=== PATIENT | female | born 1990 | race Caucasian/White ===

== ENCOUNTER 2024-08-19 09:47 | Outpatient (AMB) | payer MEDICAID, SELFPAY ==
--- NOTE | 2024-08-19 09:48 | A.OFFVIS_ITS ---
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 The pain is described as aching and burning, with an intensity of 6 to 7 out of 10. Diagnosed conditions include degenerative disc disease and sp ondyloarthritis. Previous X-rays confirmed these conditions, though no MRI has been performed. The patient has tried physical therapy, which exacerbated her pain. She was on gabapentin without benefit and currently uses meloxicam with limited relief. The patient has additional psychiatric conditions including depression, PTSD, and bipolar disorder, which she manages with counseling and Abilify. A history of childhood seizures was noted, which resolved after discontinuing Depakote, with the last seizure reported around 2019. The patient actively avoids invasive procedures such as epidural injections due to fear, but remains open to exploring other pain management treatments. She seeks an MRI to further evaluate the progression of her back conditions. Pain Description - Onset: 2002, following trauma from a horse stepping incident - Quality: Aching and burning sensation - Intensity: 6-7/10 initially, decreases to 3/10 by afternoon - Location: Axial low back - Exacerbating Factors: Morning time, bending, stretching, and physical therapy - Relieving Factors: Gradual decrease in pain over the course of the day - Interference: Hinders bending, routine sleep, and daily activities Physical Exam - Appears afebrile. - Alert and oriented. - Mood and affect appropriate. - Follows and participates in conversation appropriately. - Respiratory effort is unlabored. - Able to transition from sit to stand unassisted. - Ambulates with bilaterally normal heel strike and toe off. - Able to stand and walk on toes and heels. Results - Imaging: Prior X-ray showed degenerative changes and was less informative; no MRI conducted yet Pain Management - Affect: Pain significantly impacts mood and psychological wellbeing, leading to counseling - Analgesia: Current use of meloxicam with limited benefit; previously used gabapentin - Adverse Effects: Noted pain exacerbation with physical therapy - Activities of Daily Living: Pain affects bending, sleep, and daily chores - Aberrant Drug-Related Behaviors: Denied ON LICENSE OF [facility] Medical History (Updated 08/19/24 @ 10:14 by Brad Diallo MD) Seizure Bipolar disorder PTSD (post-traumatic stress disorder) Physical Exam Vital Signs: Last Vital Signs Pulse 88 08/19/24 09:50 Resp 16 08/19/24 09:50 BP 102/70 08/19/24 09:50 Pulse Ox 96 08/19/24 09:50 Oxygen Delivery Method Room Air 08/19/24 09:50 BMI result Body Mass Index 28.7 Assessment & Plan Assessment & Plan (1) Lumbar radiculopathy: Code(s): M54.16 - Radiculopathy, lumbar region Category: Medical Plan Plan MRI exam is the next step given the current state of the patient's lumbar condition. Depending on the MRI findings, non-invasive treatment options will be considered, respecting the patient's preferences to avoid epidural injections. Continuing psychiatric management to manage her depression and bipolar disorder will be carlos. Further psychiatric engagements will help address the psychological burden of her chronic pain condition, and vigilance for any reappearance of seizures will be maintained. Patient was informed and verbally consented to the use of an ambient scribe for clinic note documentation during this visit. Discussion Notes During the visit, I discussed the patient?s chronic low back pain, highlighting the importance of obtaining an MRI for better diagnostic clarity. We reviewed options for pain management, respecting her preference to avoid epidural injections. I discussed conservative management options and non-invasive procedures. I also addressed her psychiatric conditions, emphasizing their impact on pain and the beneficial role of continued counseling and appropriate medication management. We reviewed seizure history and agreed to monitor for any signs of recurrence. The patient was informed about the necessity of updated imaging for advancement in pain assessment and management strategy. Patient Instructions - Await a phone call from radiology to schedule an MRI. - Continue taking current medications as prescribed; consult me if any side effects occur. - Attend [facility] for regular psychiatric support. - Monitor health status and report new symptoms immediately. - Avoid activities that exacerbate pain and follow provided guidelines for movement and rest. Orders: Orders MR lumbar spine wo con 08/19/24 M54.16 - Radiculopathy, lumbar region Coding Level of Care Code New Pt Level 4 (54879) Diagnoses Lumbar radiculopathy M54.16
[2024-08-19 09:50] VITALS: BP 102/70; PULSE 88; RESP 16; O2SAT 96; BMI 28.7
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
--- OUTSIDE RECORDS SUMMARY | 2024-08-19 10:41 | XMS_ITS | Clinical Summary ---
Author Organization [facility] Address [address] [place] [address] Care Team Providers Care Telephone Ad Taker Name Role Phone Devan Hortencia Carmela Primary Care Provider [phone] Allergies Active Allergy Reactions Criticality Noted Date Comments Eggs 05/18/2021 Medications Escitalopram Oxalate (LEXAPRO) 20 MG tablet Take 20 mg by mouth 01/05/2021 Active Gabapentin (NEURONTIN) 300 MG capsule Take 300 mg by mouth 03/23/2021 Active hydrOXYzine HCl (ATARAX) 25 MG tablet 07/20/2020 Active Active Problems No known active problems Immunizations Name Administration Dates Next Due COVID-19, mRNA (Pfizer Pre F all 2022) Monovalent, 30 mcg/0.3 ml 03/15/2021 Covid-19, mRNA (Pfizer Pre F all 2022) Monovalent, 30 mcg/0.3 ml jeannette-sucrose (12+) 10/05/2021 Hep B (adult) 03/06/2020 Influenza,injectable,quad,preservative 0 Influenza,recombinant,quad,injectable,Prsrv Fr 1 Tdap 03/13/2020 Social History Tobacco Use Types Packs/Day Years Used Date Smoking Tobacco: Never Assessed Intimate Partner Violence Answer Date R ecorded Fear of Current or Ex-Partner Not on file Emotionally Abused Not on file 02/02/2023 Physically Abused Not on file 02/02/2023 Sexually Abused Not on file 02/02/2023 Feel Safe at Home Not on file 02/02/2023 Comments Unknown Sex and Gender Information Value Date Recorded Sex Assigned at Not on file Legal Sex Female 9:23 AM EST Gender Identity Not on file Sexual Orientation Not on file Last Filed Vital Signs Vital Sign Reading Time Taken Comments Blood Pressure 94/68 11/30/2022 2:16 PM EDT Pulse 68 11/30/2022 1:47 PM EDT Temperature - - Respiratory Rate - - Oxygen Saturation - - Inhaled Oxygen Concentration - - Weight 69.4 kg (153 lb) 11/30/2022 1:47 PM EDT Height 161.3 cm (5' 3.5 ) 11/30/2022 1:47 PM EDT Body Mass Index 26.68 11/30/2022 1:47 PM EDT Plan of Treatment Health Maintenance Due Date Last Done Comments Hepatitis C Screening 1989 Pap Smear 2005 Hep B (2 of 3 - 19+ 3-dose series) 04/03/2020 03/06/2020 COVID-19 Vaccine ( - 2023-2 5 season) 2024 10/05/2021, 03/15/2021 Influenza (#1) 2024 03/15/2021, 03/06/2020 DTaP/Tdap/Td (2 - Td or Tdap) 03/13/2030 03/13/2020 Zoster (Shingrix) (1 of 2) 10/25/2039 HPV Vaccine Aged Out No longer eligi ble based on patient's age to complete this topic Hep A Aged Out No longer eligi ble based on patient's age to complete this topic Hib Aged Out No longer eligi ble based on patient's age to complete this topic Meningococcal ACWY Aged Out No longer eligible based on patient's age to complete this topic Pneumococcal Aged Out No longer eligi ble based on patient's age to complete this topic Insurance , [address] [place] [address] MEDICAID * Guarantor: CAROLYN PLATA Account Type Relation to Patient Date of Phone Billing Address [employer] [address] [place] [address] Care Teams Telephone Ad Taker Relationship Specialty Start Date End Date Hortencia Hartman [facility] [address] [place], [place] [address] [place] [address] PCP - General Family Medicine 05/10/21
--- OUTSIDE RECORDS SUMMARY | 2024-08-19 10:41 | XMS_ITS | Encounter Summary ---
Author Organization [facility] Address [address] [place] [address] Care Team Providers Care Wafer Batter Mixer Name Role Phone Devan Hortencia Carmela Primary Care Provider [phone] Encounter Details Date Type Department Care Team (Late st Contact Info) Description 05/17/2021 Orders Only [facility] Orthopedic Surgery [address] [facility] [address] [place] [address] Crystal Dorsey MD [address] [place] [address] Social History Tobacco Use Types Packs/Day Years Used Date Smoking Tobacco: Never Assessed Comments Unknown Sex and Gender Information Value Date Recorded Sex Assigned at Not on file Legal Sex Female 9:23 AM EST Gender Identity Not on file Sexual Orientation Not on file documented as of this encounter Plan of Treatment Not on file documented as of this encounter Results * Due to [place] state law, this organization might not be sharing negative HIV tests. * XRAY FOOT COMPLETE MIN 3 VWS - LEFT FC (05/18/2021 9:35 AM EST) Anatomical Region Laterality Modality LOWER EXTREMITY Radiographic Larissa ging 05/18/2021 5:48 PM EST Narrative 05/18/2021 5:48 PM EST CONTRAST: 3 views left foot Comparison: None Findings: No fractures or dislocations. No joint effusion. No significant arthritic change. No radiopaque foreign body. Impression: 1. Normal left foot Procedure Note Chritsopher Coats MD - 05/18/2021 CONTRAST: 3 views left foot Comparison: None Findings: No fractures or dislocations. No joint effusion. No significant arthritic change. No radiopaque foreign body. Impression: 1. Normal left foot us Crystal Dorsey MD IMG XRAY NO CONTRAST ORDERAB LES Final Result documented in this encounter Visit Diagnoses Diagnosis Left foot pain- Primary Pain in limb Left foot pain Pain in limb documented in this encounter Care Teams Wafer Batter Mixer Relationship Specialty Start Date End Date Hortencia Hartman [facility] [address] [place], [place] [address] [address] PCP - General Family Medicine 05/10/21 documented as of this encounter
--- OUTSIDE RECORDS SUMMARY | 2024-08-19 10:42 | XMS_ITS | Data Portability ---
Author Organization [facility], [facility] Address [address] [place] [address] Care Team Providers Care Regional Sales Associate Name Role Phone CLYDE WOOD Primary Care Provider Assessment No assessment recorded. Plan of Treatment Reminders Order Date Submit Date Provider Last Modified By Organization Details Last Modified Time Details Appointments None recorded. Lab tb (M tuberculo sis), ifn-gamma mehnaz, blood [address] Patient Reg, [address] [place] [address], [id number], 0 08:09:31 varicella -zoster igg Ab screen, serum [address] Patient Reg, [address] [place] [address], [address], 0 08:09:31 MMR immunity, serum [address] Patient Reg, [address] [place] [address], [address], 0 08:09:31 drug of abuse panel, urine - chain of custody - 10 drug screen 020 [facility] Patient Reg, [address] [place], [address], 0 11:59:09 Referral None recorded. Procedures None recorded. Surgeries None recorded. Imaging None recorded. Medication Orders None recorded. Patient TargetsNo targets recorded. Patient Instructions Encounter Date Encounter Id Patient Instructions Last Modified By Organization Details Last Modified Time 03/06/2020 [id number] ishihara's test for color deficiency* [email or web address] Not available 03/06/2020 09:27:07 respiratory fit test* Not available 03/06/2020 09:29:42 04/10/2020 [id number] neck: exercises Not availa ble 04/10/2020 11:28:34 neck strain or sprain: rehab exercises Not available 04/10/2020 11:28:34 neck spasm: exercises Not available 04/10/2020 11:28:34 Reason for Referral None Reported. Results Created Date Observation Date Name Description Value Unit Range Abnormal Flag Note LastModifiedBy Organization Detail LastModifiedTime 03/06/2003/06/2020 ishih abdulaziz's test for color defic iency * Score: Pass Not Available [facility] [address] [facility] [address], [place], [address], 03/06/2020 08:53:54 03/06/2003/06/2020 ishih abdulaziz's test for color defic iency * Notes: 5/6 Not Available [facility] [address] [facility] [address], [place], [address], 03/06/2020 08:53:54 03/06/20 20 03/06/2020 respi rator y fit test* Result Pass Not Available [facility] [address] [facility] [address], [place], [address], 03/06/2020 09:29:27 03/06/20 20 03/06/2020 respi rator y fit test* Size Small Not Available [facility] [address] [facility] [address], [place], [address], 03/06/2020 09:29:27 04/14/20 20 04/15/2020 SARS CoV 2 RNA (COVI D-19) , QL, 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 normal The Aptim a SARS- CoV-2 assay is a nucle ic acid ampli ficat ion in vitro diagn ostic test inten ded for the quali tativ e detec tion of RNA from SARS- CoV-2 isola jocelyne and purif ied from nasop haryn geal (DECAL CUTTER), nasal , mid-t urbin ate, and oroph aryng eal (OP) swab speci mens obtai collin from indiv idual s meeti ng COVID -19 clini beth and/o r epide miolo gical crite armando. Resul ts are for the ident ifica tion of SARS- CoV-2 RNA which is gener ally detec table in upper respi rator y speci mens durin g the acute phase of infec tion. Posit jaed resul ts are indic ative of the prese nce of SARS- CoV-2 RNA, clini beth corre latio n with patie nt histo ry and other diagn ostic infor matio n is neces yashira to deter mine patie nt infec tion statu s. Posit jade resul ts do not rule out bacte rial infec tion or co-in fecti on with other virus es. Negat jade resul ts do not precl ude SARS- CoV-2 infec tion and shoul d not be used as the sole basis for patie nt manag ement decis ions. Negat jade resul ts must be combi collin with clini beth obser vatio ns, patie nt histo ry and epide miolo gical infor matio n. The Aptim a SARS- CoV-2 assay is for use only under the Food and Drug Admin istra tion' s Emerg ency Use Autho rizat ion (EUA) . Not Available [facility] [address] [place], [address], 04/15/2020 02:02:23 03/06/20 20 ishih abdulaziz's test for color defic iency * No observ ation record ed. [address] Occupational Medicine [address] [facility] [address], [place], [address], 03/06/2020 14:02:08 Result Notes None recorded. Procedures Surgical History None recorded. Imaging Results Imaging Date Name Status LastModified by Organiz ation Details LastModified Time 03/06/2020 ishreshma's test for color deficiency* completed [address] Occupational Medicine [address] [place] [address], [place], [address], 03/06/2020 14:02:08 Procedure Notes None recorded. Medical Equipment None [...] Not Available Not Available No t Available cephalexin 500 mg capsule TAKE 1 CAPSULE [...] Not Available Not Available No t Available Vitals Date Recorded Heart rate Oxygen saturation Oxygen saturation in Arterial blood by Pulse oximetry Body height Body mass index (BMI) Body weight Systolic blood pressure Diastolic blood pressure Provider Name and Address Organization Details Last Updated DateTime 0 81 /min 99 % 99 % 160.02 cm 25.7 kg/m2 67885.8 9 g 114 mm[Hg] 78 mm[Hg] Ashley Still MA [facility] 0 09:10:00 Date Recorded Body height Provider Name an d Address Organization Details Last Updated DateTime 04/10/2020 160.02 cm Ashley Still [facility] 04/10/2020 10:22:06 Social History None recorded. Functional Status None recorded. Mental Status None recorded. Family History Nothing Reported. Medical History No medical history recorded. Gynecological HistoryNo gynecological history recorded. Obstetrics History GPAL:G 0 P 0 0 0 0 Immunizations Vaccine Type Date Status Note Provider Nam e and Address Organization Details Recorded Time Influenza, split virus, quadrivalent, preservative 0 completed KALEY Lovett [facility] 03/06/2020 09:50:45 Hep B, adult 0 completed KALEY Lovett [facility] 03/06/2020 09:51:37 [facility]13[facility] 15:52:33 Past Encounters Encounter ID Performer Location Encounter Start Date Encounter Closed Date Diagnosis/Indication Diagnosis SNOMED-CT Code Diagnosis ICD10 Code Diagnosis Note [id number] Herve Glez MD [facility] for [address] [address] 03/23/2012 10:20:03 03/23/2012 11:15:02 [id number] Meagan Wheeler NP [facility] for [address] [address] 03/26/2012 11:03:45 03/27/2012 09:44:20 [id number] Meagan Wheeler NP [facility] for [address] [address] 06/15/2012 11:02:56 06/15/2012 14:18:07 [id number] WALLY MARTÍNEZ NP Occupatio [address] [address] 03/06/2020 08:51:57 03/06/2020 09:49:52 History and physical examination, pre-employment 513093576 Z02.1 On exam NAD, no LAD, lungs clear, RRR, no M/R/G, abd benign, neuro intact, color vision normal. Urine drug screen obtained today. Test orders provided for lab. Discussed back safety and safe lifting techniques . Paperwork provided to pt. See scanned papers. Fitting procedure [id number] 006 Z46.9 pass; small halyard [id number] [facility] [address] 03/13/2020 15:39:13 03/13/2020 15:52:50 Administration of diphtheria, pertussis, and tetanus vaccine 666765336 Z23 tdap given in office today [id number] Lazaro Malcolm III, MD [facility] [address] [place] [address] 04/08/2020 13:23:41 04/08/2020 15:36:58 [id number] SONIA Sanchez [address] [address] 04/10/2020 10:21:37 04/13/2020 11:58:24 Strain of neck muscle 024181197 S16.1XXA General c-spine paraspinal muscle spasm and pain. RICE, alternate with heat, cont. with muscle relaxants, and gentle ROM exercises. F/u with PCP for further eval Unfit to r eturn to work [id number] Z56.89 Unfit to return to work at this time. Will f/u 04/13 for re-eval. Returned Goods Receiving Clerk informed. [id number] SONIA Sanchez Occupatio [facility] [address] [facility],[address] [place] [address] 04/16/2020 14:55:26 04/16/2020 15:19:08 Fit to return to work [id number] Z76.89 Normal exam of neck in the office today. Discussed proper lifting and bending techniques . Education provided to follow up if symptoms come back. Her PCP Dr. Wood cleared her without restrictio ns to return to work. She will provide a note if needed for her record. Returned Goods Receiving Clerk has been advised. Health Concerns Section Related Observation LastModified by Organization Detai ls LastModified Time None Recorded Concern Status LastModified by Organization Details LastModified Time None Recorded Advance Directives Directive None Recorded Payers Encounter Date Sequence Insurance Name Policy Number Policy Rodriguez Covered Member ID Rodriguez Member ID Guarantor Name 03/06/2020 [facility] Negrita [employer] [facility] [employer]ita [employer] 03/13/2020 [facility] Negrita [employer] [facility] [employer]ita [employer] 04/10/2020 [facility] Ne[employer] [facility] [employer]ita [employer] 04/16/2020 [facility] Negrita M Dar Notes Date Note Type Note Provider Name and Address Organization Details Recorded Time 03/06/2020 text/html 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 She believes, based upon the job description that was provided to her that she can handle all duties and responsibilities of the job. She denies any history of work related injuries. WALLY MARTÍNEZ NP [address] [facility], [place], [address], [facility] 03/06/2020 09:33:00 03/13/2020 text/html Patient presents to office for tdap vaccination. She will be working for . SONIA Sanchez [address] [facility] [place], [address], [facility] 03/16/2020 11:26:57 04/10/2020 text/html Pt is here for R TW for s/p home neck injury. Was seen at on 04/08/20 without any relief of symptoms. Given muscle relaxant, told to take NSAIDs, and given neck brace. States very little ROM of the neck with pain. Can not pickup her daughter or bend without limitations. States she woke up like this. Has had similar neck and back issues before in which she saw PT SONIA Sanchez [address] [place], [address], [facility] 04/10/2020 16:20:14 04/16/2020 text/html Employee seen to day in the office for a follow up/RTW for a neck injury. HH at [facility]. She has been cleared by her PCP to RTW without restrictions. SONIA Sanchez [address] [place], [address], [facility] 05/12/2020 16:26:48 OBGyn Episode No OBEpisode recorded.
== END 2024-08-19 10:21 | disposition home or self-care (01) ==
PROVIDERS: Visit Provider Internal Medicine
DX: M54.16 Radiculopathy, lumbar region (principal)
CPT/HCPCS: 99204

== ENCOUNTER → 2024-08-19 09:47 | Outpatient (BNVA) | payer MEDICAID, SELFPAY | PROVIDERS: Visit Provider Internal Medicine | DX: M54.16 Radiculopathy, lumbar region (principal) | CPT/HCPCS: 99202 ==

== ENCOUNTER → 2024-08-28 11:25 | Outpatient (BNV) | payer MEDICAID, SELFPAY | PROVIDERS: Visit Provider Radiology Diagnostic Radiology | DX: M54.16 Radiculopathy, lumbar region (principal); M47.896 Other spondylosis, lumbar region | CPT/HCPCS: 72148 ==

== ENCOUNTER 2024-08-28 11:28 | Outpatient (REF) | payer MEDICAID, SELFPAY ==
--- NOTE | ~2024-08-28 | MR_ITS ---
EXAMINATION: MR LUMBAR SPINE WITHOUT CONTRAST CLINICAL INFORMATION: Radiculopathy, lumbar region. COMPARISON: None available. TECHNIQUE: MRI of the lumbar spine was obtained using routine sequences without contrast. FINDINGS: Last rib-bearing vertebra labeled T12. No bone marrow STIR signal abnormality. There is normal alignment. The conus medullaris ends at inferior endplate of T12 with normal signal. T11-12: No disc herniation. No neuroforamina stenosis. T12-L1: No disc herniation. No neuroforamina stenosis. L1-2: Broad-based disc bulging. Facet joint hypertrophy. No disc herniation. No neuroforamina stenosis. L2-3: Broad-based disc bulging. Facet joint and ligamentum flavum hypertrophy. Reduced AP diameter of the thecal sac and the neural foramina. No compression upon neural elements. L3-4: Broad-based disc bulging. Facet joint and ligamentum flavum Review. Reduced AP diameter of the thecal sac and neuroforamina. L4-5: Broad-based disc bulging. Facet joint and ligamentum flavum hypertrophy. Reduced AP diameter of the thecal sac and the neural foramina. No compression. L5-S1: Broad-based disc bulging. Facet joint hypertrophy. Bilateral neuroforamina narrowing. No prevertebral compartment hematoma, mass or fluid collection. Small amount of free fluid in the cul-de-sac. Heterogeneous appearance of the myometrium. Multiple cystic structures in the right adnexa. MR/MR lumbar spine wo con IMPRESSION: Multilevel lumbar spondylosis, mild to moderate L3-4 to L5-S1. Electronically signed by: Ray Dowling MD 08/28/2024 03:39 PM EDT
--- OUTSIDE RECORDS SUMMARY | 2024-08-28 14:05 | XMS_ITS | Encounter Summary ---
Author Organization [facility] Address [address] [place] [address] Care Team Providers Care Ship Ceiler Name Role Phone Devan Hortencia Carmela Primary Care Provider [phone] Encounter Details Date Type Department Care Team (Late st Contact Info) Description 05/17/2021 Orders Only [facility] Orthopedic Surgery [address] [facility] [address] [place] [address] Crystal Dorsey MD [address] [place] [address] Social History Tobacco Use Types Packs/Day Years [...] of this encounter Results * Due to [place] state law, this organization might not be [...] Impression: 1. Normal left foot Procedure Note Christopher Coats MD - 05/18/2021 CONTRAST: 3 views [...] limb documented in this encounter Care Teams Ship Ceiler Relationship Specialty Start Date End Date Hortencia Hartman [facility] [address] [place], [place] [address] [address] PCP - General Family Medicine 05/10/21 documented as of this encounter
--- OUTSIDE RECORDS SUMMARY | 2024-08-28 14:05 | XMS_ITS | Clinical Summary ---
Author Organization [facility] Address [address] [place] [address] Care Team Providers Care Event Staff Name Role Phone Devan Hortencia Carmela Primary Care Provider [phone] Allergies Active Allergy Reactions Criticality Noted Date [...] complete this topic Insurance , # [address] [place] [address] MEDICAID * Guarantor: CAROLYN PLATA Account Type Relation to Patient Date of Phone Billing Address Occupational [employer] [address] [place] [address] Care Teams Event Staff Relationship Specialty Start Date End Date Hortencia Hartman [facility] [address] [place], [place] [address] [address] PCP - General Family Medicine 05/10/21
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
--- OUTSIDE RECORDS SUMMARY | 2024-08-28 14:05 | XMS_ITS | Data Portability ---
Author Organization [facility] Address [address] [place] [address] Care Team Providers Care Yarn Conditioner Name Role Phone CLYDE WOOD Primary Care Provider [phone] Assessment No assessment recorded. Plan of Treatment Reminders Order Date Submit Date Provider Last Modified By Organization Details Last Modified Time Details Appointments None recorded. Lab tb (M tuberculo sis), ifn-gamma mehnaz, blood [address] Patient Reg, [address] [place] [address], [address], 0 08:09:31 varicella -zoster igg Ab screen, serum [address] Patient Reg, [address] [place] [address], [address], 0 08:09:31 MMR immunity, serum [address] Patient Reg, [address] [place] [address], [address], 0 08:09:31 drug of abuse panel, urine - chain of custody - 10 drug screen 020 [facility] Patient Reg, [address] [place], [address], 0 11:59:09 Referral None recorded. Procedures None recorded. Surgeries None recorded. Imaging None recorded. Medication Orders None recorded. Patient TargetsNo targets recorded. Patient Instructions Encounter Date Encounter Id Patient Instructions Last Modified By Organization Details Last Modified Time 03/06/2020 [id number] ishihara's test for color deficiency* [email or web address] Not available 03/06/2020 09:27:07 respiratory fit test* [email or web address] Not available 03/06/2020 09:29:42 04/10/2020 [id number] neck: exercises Not availa ble 04/10/2020 11:28:34 neck strain or sprain: rehab exercises Not available 04/10/2020 11:28:34 neck spasm: exercises Not available 04/10/2020 11:28:34 Reason for Referral None Reported. Results Created Date Observation Date Name Description Value Unit Range Abnormal Flag Note LastModifiedBy Organization Detail LastModifiedTime 03/06/2003/06/2020 ishih abdulaziz's test for color defic iency * Score: Pass Not Available [facility] [address] [facility] [address], [place], [address], 03/06/2020 08:53:54 03/06/2003/06/2020 ishih abdulaziz's test for color defic iency * Notes: 5/6 Not Available [facility] [address] [facility] [address], [place], [address], 03/06/2020 08:53:54 03/06/20 20 03/06/2020 respi rator y fit test* Result Pass Not Available [facility] [address] [facility] [address], [place], [address], 03/06/2020 09:29:27 03/06/20 20 03/06/2020 respi rator y fit test* Size Small Not Available [facility] [address] [facility] [address], [place], [address], 03/06/2020 09:29:27 04/14/20 20 04/15/2020 SARS CoV 2 RNA (COVI D-19) , QL, electrical mechanical technician-P CR, respi rator y speci men sars-cov-2 NOT DETECT ED not detect . normal The Aptim a SARS- CoV-2 assay is a nucle ic acid ampli ficat ion in vitro diagn ostic test inten ded for the quali tativ e detec tion of RNA from SARS- CoV-2 isola jocelyne and purif ied from nasop haryn geal (SCALLOP CUTTER MACHINE), nasal , mid-t urbin ate, and oroph [...] the acute phase of infec tion. Posit jade resul ts are indic ative of the [...] Autho rizat ion (EUA) . Not Available [facility] [address] [place], [address], 04/15/2020 02:02:23 03/06/20 20 ishih abdulaziz's test for color defic iency * No observ ation record ed. [address] Occupational Medicine [address] [facility] [address], [place], [address], 03/06/2020 14:02:08 Result Notes None recorded. Procedures Surgical History None recorded. Imaging Results Imaging Date Name Status LastModified by Organiz ation Details LastModified Time 03/06/2020 ishreshma's test for color deficiency* completed [address] Occupational Medicine [address] [place] [address], [place], [address], 03/06/2020 14:02:08 Procedure Notes None recorded. Medical [...] % 99 % 160.02 cm 25.7 kg/m2 29985.8 9 g 114 mm[Hg] 78 mm[Hg] Ashley Still MA [facility] 0 09:10:00 Date Recorded Body height Provider Name an d Address Organization Details Last Updated DateTime 04/10/2020 160.02 cm [facility] Still [facility] 04/10/2020 10:22:06 Social History None recorded. Functional Status None recorded. Mental Status None recorded. Family History Nothing Reported. Medical History No medical history recorded. Gynecological HistoryNo gynecological history recorded. Obstetrics History GPAL:G 0 P 0 0 0 0 Immunizations Vaccine Type Date Status Note Provider Nam e and Address Organization Details Recorded Time Influenza, split virus, quadrivalent, preservative 0 completed KALEY Lovett [facility] 03/06/2020 09:50:45 Hep B, adult 0 completed KALEY Lovett [facility] 03/06/2020 09:51:37 [facility]/13[facility]2020 15:52:33 Past Encounters Encounter ID Performer Location Encounter Start Date Encounter Closed Date Diagnosis/Indication Diagnosis SNOMED-CT Code Diagnosis ICD10 Code Diagnosis Note [id number] Herve Glez MD [facility] [address] [address] 03/23/2012 10:20:03 03/23/2012 11:15:02 [id number] Meagan Wheeler NP [facility] [address] [address] 03/26/2012 11:03:45 03/27/2012 09:44:20 [id number] Meagan Wheeler NP [facility] [address] [address] 06/15/2012 11:02:56 06/15/2012 14:18:07 [id number] WALLY MARTÍNEZ NP Occupatio [address] [address] 03/06/2020 08:51:57 03/06/2020 09:49:52 History and physical examination, pre-employment 073094432 Z02.1 On exam NAD, no LAD, lungs clear, RRR, no M/R/G, abd benign, neuro intact, color vision normal. Urine drug screen obtained today. Test orders provided for lab. Discussed back safety and safe lifting techniques . Paperwork provided to pt. See scanned papers. Fitting procedure 474290 006 Z46.9 pass; small halyard [id number] [facility] [address] 03/13/2020 15:39:13 03/13/2020 15:52:50 Administration of diphtheria, pertussis, and tetanus vaccine 247716665 Z23 tdap given in office today [id number] Lazaro Malcolm III, MD [facility] [address] [place] [address] 04/08/2020 13:23:41 04/08/2020 15:36:58 [id number] SONIA Sanchez [address]ati[address] [address] 04/10/2020 10:21:37 04/13/2020 11:58:24 Strain of neck muscle 887136894 S16.1XXA General c-spine paraspinal muscle spasm and pain. RICE, alternate with heat, cont. with muscle relaxants, and gentle ROM exercises. F/u with PCP for further eval Unfit to r eturn to work 050094903 Z56.89 Unfit to return to work at this time. Will f/u 04/13 for re-eval. Landscape Gardener informed. [id number] SONIA Sanchez Occupatio [facility] [address] [facility],[address] [place] [address] 04/16/2020 14:55:26 04/16/2020 15:19:08 Fit to return to work 918568030 Z76.89 Normal exam of neck in the office today. Discussed proper lifting and bending techniques . Education provided to follow up if symptoms come back. Her PCP Dr. Wood cleared her without restrictio ns to return to work. She will provide a note if needed for her record. Landscape Gardener has been advised. Health Concerns Section Related Observation LastModified by Organization Detai ls LastModified Time None Recorded Concern Status LastModified by Organization Details LastModified Time None Recorded Advance Directives Directive None Recorded Payers Encounter Date Sequence Insurance Name Policy Number Policy Rodriguez Covered Member ID Rodriguez Member ID Guarantor Name 03/06/2020 [facility] Negrita [employer] [facility] Negrita [employer] 03/13/2020 [facility] Negrita [employer] [facility] Negrita [employer] 04/10/2020 [facility] Negrita [employer] [facility] Negrita Dodge 04/16/2020 [facility] Negrita M Dar Notes Date Note Type Note Provider Name and Address Organization Details Recorded Time 03/06/2020 text/html 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 She believes, based upon the job description that was provided to her that she can handle all duties and responsibilities of the job. She denies any history of work related injuries. WALLY MARTÍNEZ NP [address] [facility], [place], [address], [facility] 03/06/2020 09:33:00 03/13/2020 text/html Patient presents to office for tdap vaccination. She will be working for . SONIA Sanchez [address] [facility] [place], [address], [facility] 03/16/2020 11:26:57 04/10/2020 text/html Pt [...] which she saw PT SONIA Sanchez [address] [facility] [place], [address], [facility] 04/10/2020 16:20:14 04/16/2020 text/html Employee seen to day in the office for a follow up/RTW for a neck injury. HH at [facility]. She has been cleared by her PCP to RTW without restrictions. SONIA Sanchez [address] [facility] [place], [address], [facility] 05/12/2020 16:26:48 OBGyn Episode No OBEpisode recorded.
== END 2024-08-28 11:29 | disposition home or self-care (01) ==
LOC: HO.MRI 11:28
PROVIDERS: Visit Provider Internal Medicine
DX: M54.16 Radiculopathy, lumbar region (principal)
CPT/HCPCS: 72148

== ENCOUNTER → 2024-09-27 09:15 | Outpatient (BNV) | payer MEDICAID, SELFPAY | PROVIDERS: Visit Provider Internal Medicine | DX: N64.4 Mastodynia (principal) | CPT/HCPCS: 76642; 77062; 77066 ==

== ENCOUNTER 2024-09-27 09:21 | Outpatient (REF) | payer MEDICAID, SELFPAY ==
--- NOTE | ~2024-09-27 | US_ITS ---
EXAMINATION: MM DIAGNOSTIC DIGITAL BREAST TOMOSYNTHESIS, BILATERAL Lateral Limited ultrasound. CLINICAL INFORMATION: Bilateral breast pain. COMPARISON: Mammography: Comparison is made with relevant prior exams. TECHNIQUE: Digital breast mammography with tomosynthesis is performed in both the craniocaudal and mediolateral oblique views along with computer-aided detection (CAD). FINDINGS: There are scattered areas of fibroglandular density (ACR BI-RADS breast composition Category b). Triangular markers in the upper outer quadrants of both breasts without underlying abnormality. There are no significant masses, abnormal calcifications, or other abnormalities. Targeted color Doppler ultrasound scanning in the upper outer quadrants of both breasts demonstrate normal fibroglandular breast tissue. There is no sonographic abnormality. Results are provided to the patient at time of visit by the technologist. US/US breast LT limited mamm only IMPRESSION: No mammographic or sonographic abnormality to account for the patient's bilateral upper outer quadrant breast pain. Recommend clinical evaluation follow-up. ASSESSMENT: BI-RADS BI-RADS 1 - Negative RECOMMENDATION: 1 year F/U This patient's information was entered into a reminder system with a target due date for their next mammogram. Electronically signed by: Sharri Bhatt DO 09/27/2024 02:57 PM EDT
--- OUTSIDE RECORDS SUMMARY | 2024-09-27 09:52 | XMS_ITS | Data Portability ---
Author Organization [facility], [facility] Address [address] [place] [address] Care Team Providers Care Knife Setter Grinder Machine Name Role Phone CLYDE WOOD Primary Care Provider Assessment No assessment recorded. Plan of Treatment Reminders Order Date Submit Date Provider Last Modified By Organization Details Last Modified Time Details Appointments None recorded. Lab tb (M tuberculo sis), ifn-gamma mehnaz, blood [address] Patient Reg, [address] [place] [address], [address], 0 08:09:31 varicella -zoster igg Ab screen, serum [address] Patient Reg, [address] [place] [address], [address], 0 08:09:31 MMR immunity, serum [address] Patient Reg, [address] [place] [address], [address], 0 08:09:31 drug of abuse panel, urine - chain of custody - 10 drug screen 020 [facility] Patient Reg, [address] [place], [address], 0 11:59:09 Referral None recorded. Procedures None recorded. Surgeries None recorded. Imaging None recorded. Medication Orders None recorded. Patient TargetsNo targets recorded. Patient Instructions Encounter Date Encounter Id Patient Instructions Last Modified By Organization Details Last Modified Time 03/06/2020 [id number] ishihara's test for color deficiency* [email or web address] Not available 03/06/2020 09:27:07 respiratory fit test* Not available 03/06/2020 09:29:42 04/10/2020 [id number] neck: exercises Not availa ble 04/10/2020 11:28:34 neck strain or sprain: rehab exercises Not available 04/10/2020 11:28:34 neck spasm: exercises Not available 04/10/2020 11:28:34 Reason for Referral None Reported. Results Created Date Observation Date Name Description Value Unit Range Abnormal Flag Note LastModifiedBy Organization Detail LastModifiedTime 03/06/2003/06/2020 ishih abdulaziz's test for color defic iency * Score: Pass Not Available [facility] [address] [facility] [address], [place], [address], 03/06/2020 08:53:54 03/06/2003/06/2020 ishih abdulaziz's test for color defic iency * Notes: 5/6 Not Available [facility] [address] [facility] [address], [place], [address], 03/06/2020 08:53:54 03/06/20 20 03/06/2020 respi rator y fit test* Result Pass Not Available [facility] [address] [facility] [address], [place], [address], 03/06/2020 09:29:27 03/06/20 20 03/06/2020 respi rator y fit test* Size Small Not Available [facility] [address] [facility] [address], [place], [address], 03/06/2020 09:29:27 04/14/20 20 04/15/2020 SARS CoV 2 RNA (COVI D-19) , QL, loftsman-P CR, respi rator y speci men sars-cov-2 NOT DETECT ED not detect . normal The Aptim a SARS- CoV-2 assay is a nucle ic acid ampli ficat ion in vitro diagn ostic test inten ded for the quali tativ e detec tion of RNA from SARS- CoV-2 isola jocelyne and purif ied from nasop haryn geal (WASH HOUSE WORKER), nasal , mid-t urbin ate, and oroph [...] Autho rizat ion (EUA) . Not Available [facility] [address] [place], [address], 04/15/2020 02:02:23 03/06/20 20 ishih abdulaziz's test for color defic iency * No observ ation record ed. [address] Occupational Medicine [address] [facility] [address], [address], 03/06/2020 14:02:08 Result Notes None recorded. Procedures Surgical History None recorded. Imaging Results Imaging Date Name Status LastModified by Organiz ation Details LastModified Time 03/06/2020 ishreshma's test for color deficiency* completed [address] Occupational Medicine [address] [place] [address], [place], [address], 03/06/2020 14:02:08 Procedure Notes None recorded. Medical [...] % 99 % 160.02 cm 25.7 kg/m2 02539.8 9 g 114 mm[Hg] 78 mm[Hg] Ashley Still MA [facility] 0 09:10:00 Date Recorded Body height Provider Name an d Address Organization Details Last Updated DateTime 04/10/2020 160.02 cm Ashley Still [facility] 04/10/2020 10:22:06 Social History None recorded. Functional Status None recorded. Mental Status None recorded. Family History Nothing Reported. Medical History No medical history recorded. Gynecological HistoryNo gynecological history recorded. Obstetrics History GPAL:G 0 P 0 0 0 0 Immunizations Vaccine Type Date Status Note Provider Nam e and Address Organization Details Recorded Time Influenza, split virus, quadrivalent, preservative 0 completed KALEY Lovett [facility] 03/06/2020 09:50:45 Hep B, adult 0 completed KALEY Lovett [facility] 03/06/2020 09:51:37 [facility] 15:52:33 Past Encounters Encounter ID Performer Location Encounter Start Date Encounter Closed Date Diagnosis/Indication Diagnosis SNOMED-CT Code Diagnosis ICD10 Code Diagnosis Note [id number] Herve Glez MD [facility] for [address] [address] 03/23/2012 10:20:03 03/23/2012 11:15:02 [id number] Meagan Wheeler NP [facility] for [address] [address] 03/26/2012 11:03:45 03/27/2012 09:44:20 [id number] Meagan Wheeler NP [facility] for [address] [address] 06/15/2012 11:02:56 06/15/2012 14:18:07 [id number] WALLY MARTÍNEZ NP Occupatio [address] [address] 03/06/2020 08:51:57 03/06/2020 09:49:52 History and physical examination, pre-employment 360023053 Z02.1 On exam NAD, no LAD, lungs clear, RRR, no M/R/G, abd benign, neuro intact, color vision normal. Urine drug screen obtained today. Test orders provided for lab. Discussed back safety and safe lifting techniques . Paperwork provided to pt. See scanned papers. Fitting procedure 554172 006 Z46.9 pass; small halyard [id number] [facility] [address] 03/13/2020 15:39:13 03/13/2020 15:52:50 Administration of diphtheria, pertussis, and tetanus vaccine 337432451 Z23 tdap given in office today [id number] Lazaro Malcolm III, MD [facility] [address] [place] [address] 04/08/2020 13:23:41 04/08/2020 15:36:58 [id number] SONIA Sanchez [address] [address] 04/10/2020 10:21:37 04/13/2020 11:58:24 Strain of neck muscle 973757585 S16.1XXA General c-spine paraspinal muscle spasm and pain. RICE, alternate with heat, cont. with muscle relaxants, and gentle ROM exercises. F/u with PCP for further eval Unfit to r eturn to work 743397966 Z56.89 Unfit to return to work at this time. Will f/u 04/13 for re-eval. Electronics Manufacturer informed. [id number] SONIA Sanchez [facility]atio [facility] [address] [facility],[address] [place] [address] 04/16/2020 14:55:26 04/16/2020 15:19:08 Fit to return to work 834773772 Z76.89 Normal exam of neck in the office today. Discussed proper lifting and bending techniques . Education provided to follow up if symptoms come back. Her PCP Dr. Wood cleared her without restrictio ns to return to work. She will provide a note if needed for her record. Electronics Manufacturer has been advised. Health Concerns Section Related Observation LastModified by Organization Detai ls LastModified Time None Recorded Concern Status LastModified by Organization Details LastModified Time None Recorded Advance Directives Directive None Recorded Payers Encounter Date Sequence Insurance Name Policy Number Policy Rodriguez Covered Member ID Rodriguez Member ID Guarantor Name 03/06/2020 [facility] Negrita [employer] Negrita [employer] 03/13/2020 [facility] Negrita [employer] Negrita Dodge 04/10/2020 [facility] Negrita [employer] Negrita Dodge 04/16/2020 [facility] [employer] Negrita M Dar Notes Date Note Type Note Provider Name and Address Organization Details Recorded Time 03/06/2020 text/html 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 She believes, based upon the job description that was provided to her that she can handle all duties and responsibilities of the job. She denies any history of work related injuries. WALLY MARTÍNEZ NP [address] [facility], [place], [address], [facility] 03/06/2020 09:33:00 03/13/2020 text/html Patient presents to office for tdap vaccination. She will be working for . SONIA Sanchez [address] [place], [address], [facility] 03/16/2020 11:26:57 04/10/2020 text/html Pt is here [...] which she saw PT SONIA Sanchez [address] [place], [address], [facility] 04/10/2020 16:20:14 04/16/2020 text/html Employee seen to day in the office for a follow up/RTW for a neck injury. HH at [facility]. She has been cleared by her PCP to RTW without restrictions. SONIA Sanchez [address] [facility] [place], [address], [facility] 05/12/2020 16:26:48 OBGyn Episode No OBEpisode recorded.
--- OUTSIDE RECORDS SUMMARY | 2024-09-27 09:52 | XMS_ITS | Clinical Summary ---
Author Organization [facility] Address [address] [place] [address] Care Team Providers Care Hearing Aid Repair Technician Name Role Phone Devan Hortencia Carmela Primary Care Provider [phone] Allergies Active Allergy Reactions Criticality Noted Date [...] complete this topic Insurance , # [address] [place] [address] MEDICAID * Guarantor: CAROLYN PLATA Account Type Relation to Patient Date of Phone Billing Address Occupational Health [employer] [address] [place] [address] Care Teams Hearing Aid Repair Technician Relationship Specialty Start Date End Date Hortencia Hartman [facility] [address] [place], [place] [address] [place] [address] PCP - General Family Medicine 05/10/21
--- OUTSIDE RECORDS SUMMARY | 2024-09-27 09:52 | XMS_ITS | Encounter Summary ---
Author Organization [facility] Address [address] [place] [address] Care Team Providers Care Specialty Food Products Supervisor Name Role Phone Devan Hortencia Carmela Primary Care Provider [phone] Encounter Details Date Type Department Care Team (Late st Contact Info) Description 05/17/2021 Orders Only [facility] Orthopedic Surgery [address] [facility] [address] [place] [address] Crystal Dorsey MD [address] [place] [address] Social History Tobacco Use Types Packs/Day Years [...] limb documented in this encounter Care Teams Specialty Food Products Supervisor Relationship Specialty Start Date End Date Hortencia Hartman [facility] [address] [place], [place] [address] [address] PCP - General Family Medicine 05/10/21 documented as of this encounter
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
== END 2024-09-27 09:22 | disposition home or self-care (01) ==
LOC: HO.MAMMO 09:21
PROVIDERS: Visit Provider Physician Assistant
DX: N64.4 Mastodynia (principal)
CPT/HCPCS: 76642; 77062; 77066